=== PATIENT | male | born 1955 | race Caucasian/White ===

== ENCOUNTER 2017-11-20 09:41 | Day surgery (SDC) | payer BC ==
[2017-11-18 17:45] VITALS: BMI 22.3
[~2017-11-20 09:41] MED LIST: LACTATED RINGERS 1,000 ML IV SCH
[2017-11-20 10:55] VITALS: RESP 16; TEMP 97
[2017-11-20] MEDS ORDERED: LIDOCAINE 1% 20 ML VIAL (10MG/ML) FOR IV START INTRADERMA ONE (11:04)
[2017-11-20] MEDS ORDERED: PROPOFOL 10 MG/ML 20 ML VIAL IV ONE (11:37)
--- NOTE | 2017-11-20 12:01 | P.PCN ---
Date of Procedure: 11/20/17 Procedure(s) Performed: BRIEF HISTORY: Patient is a 62-year-old pleasant white male, scheduled for an elective colonoscopy as a part of screening for colorectal rectal neoplasia. PROCEDURE PERFORMED: Colonoscopy with snare polypectomy. PREOPERATIVE DIAGNOSIS: Screening for colon cancer. IV sedation per Anesthesia. PROCEDURE: After informed consent was obtained, the patient, was brought into the endoscopy unit. IV sedation was administered by Anesthesia under continuous monitoring. Digital rectal examination was normal. Initially the Olympus CF- 160 flexible video colonoscope was then inserted in the rectum, gradually advanced into the cecum without any difficulty. Careful examination was performed as the scope was gradually being withdrawn. Ileocecal valve and the appendiceal orifice were visualized and appeared normal. Prep was excellent. Mucosa of the cecum, ascending colon, transverse colon, descending colon, sigmoid colon, and rectum appeared normal. There was a 7 mm polyp noted in the recto sigmoid colon that was removed by snare polypectomy. Scattered left sided diverticulosis seen. Retroflexion was performed in the rectum and no lesions were seen. The patient tolerated the procedure well. IMPRESSION: 7-8 mm rectosigmoid colon polyp status post polypectomy Scattered left-sided diverticulosis. RECOMMENDATIONS: Findings of this examination were discussed with the patient as well as his family. He was advised to follow with the biopsy results. If the biopsy shows a tubular adenoma he can have a repeat colonoscopy in 5 years.
[2017-11-20 12:21] VITALS: BP 128/83; PULSE 78
== END 2017-11-20 12:50 | disposition home or self-care (01) ==
LOC: ORWHC2ENDO 09:41
PROVIDERS: ATTEND Internal Medicine Gastroenterology
DX: Z12.11 Encounter for screening for malignant neoplasm of colon (principal); K63.5 Polyp of colon; K57.30 Diverticulosis of large intestine without perforation or abscess without bleeding; Z88.0 Allergy status to penicillin; Z79.82 Long term (current) use of aspirin
CPT/HCPCS: 88305; 45385; J2704

== ENCOUNTER → 2023-06-10 | Outpatient (CLI) | payer MEDICARE ==
--- NOTE | 2023-06-10 09:26 | US ---
EXAMINATION TYPE: US Aorta Screening DATE OF EXAM: 06/10/2023 COMPARISON: NONE CLINICAL INDICATION: Male, 68 years old with history of Z82.49 FAMILY HX OF ISCHEM HEART DIS AND, F1 7.210; TECHNIQUE: Multiple sonographic images of the abdominal aorta are obtained. FINDINGS: EXAM MEASUREMENTS: Abdominal Aorta: Mild atherosclerotic plaque throughout. Normal color flow identified. Proximal: 2.4 x 2.3 cm Mid: 1.8 x 1.8 cm Distal: 1.9 x 1.7 cm Bifurcation: Right iliac artery measures 1.0 x 1.3 cm. Left iliac artery measures 1.1 x 1.1 cm. IMPRESSION: No abdominal aortic aneurysm.
--- NOTE | 2023-06-10 10:00 | CTL ---
EXAMINATION TYPE: CT Low Dose Lung DATE OF EXAM ORDERED: 06/10/2023 HISTORY: . Lung cancer screening CT DLP: 93.[address] CTDI: 2.5 mGy Automated exposure control for dose reduction was used. SCREENING VISIT: COMPARISON: None TECHNIQUE: Low dose computed tomography scan was performed through the chest at 1 mm thick sections a nd reconstructed images in multiple planes at 1 mm and [address] DIAGNOSTIC QUALITY: Satisfactory FINDINGS: Biapical scarring. Subpleural micronodules bilateral lung apices. Diffuse emphysematous changes. No focal consolidative pneumonia. Pleural effusion or pneumothorax. No interstitial edema. Groundglas s subsegmental changes involving the right lung base most likely atelectasis. Structures of the upper abdomen demonstrate small hiatal hernia. Heart size normal. Mild atherosclero tic change of aorta. No evidence of aneurysm. Assessment for adenopathy limited by noncontrast techni que. Grossly no pathologic Multilevel hypertrophic and degenerative changes of the spine. Upper pole right renal lesion measures 12 Hounsfield units suggestive of simple cyst. IMPRESSION: 1. No suspicious pulmonary nodules. Diffuse emphysematous changes are noted. CT LUNG RAD AND CT CHEST RECOMMENDATION: Lung-Rad 2 Benign Appearance or Behavior: Continue annual sc reening with LDCT in 12 months.
== END | disposition home or self-care (01) ==
LOC: RADUSWWP 08:37
PROVIDERS: ATTEND Family Medicine
DX: Z12.2 Encounter for screening for malignant neoplasm of respiratory organs (principal); F17.210 Nicotine dependence, cigarettes, uncomplicated; J43.9 Emphysema, unspecified; Z82.49 Family history of ischemic heart disease and other diseases of the circulatory system
CPT/HCPCS: 71271; 76706

== ENCOUNTER → 2024-01-20 | Outpatient (CLI) | payer MEDICARE ==
--- NOTE | 2024-01-27 23:07 | MR ---
EXAMINATION TYPE: MR knee LT wo con DATE OF EXAM: 01/20/2024 COMPARISON: NONE HISTORY: Pain and swelling of left knee x1 week, TECHNIQUE: Multiplanar, multisequence images of the knee is performed without IV contrast. FINDINGS: MEDIAL MENISCUS: Truncated appearance to the posterior horn with abnormal signal extending to articul ar surface. LATERAL MENISCUS: Horizontal increased signal does not definitively extend to articular surface. CRUCIATE LIGAMENTS: The anterior and posterior cruciate ligaments are intact and unremarkable. COLLATERAL LIGAMENTS: The medial collateral ligament and lateral collateral ligament complex are inta ct and unremarkable. EXTENSOR MECHANISM: Visualized quadriceps and patellar tendons are intact. EFFUSION: Large size suprapatellar joint effusion. POPLITEAL CYST: No popliteal/suresh cyst. TRICOMPARTMENT SPACES: Mild to moderate tricompartment joint space loss and mild tricompartment spurr ing. CARTILAGE: Some cartilaginous loss medial tibiofemoral compartment. BONE MARROW SIGNAL: No focal abnormal marrow signal is appreciated. OTHER: Moderate diffuse abnormal subcutaneous edema. IMPRESSION: 1. Large-sized suprapatellar joint effusion. 2. Full-thickness tear posterior horn medial meniscus. 3. Intrasubstance tear involving the entire lateral meniscus. 4. Mild to moderate tricompartment degenerative changes are present as detailed above. 5. Moderate diffuse subcutaneous edema.
== END | disposition home or self-care (01) ==
LOC: RADMRIMAIN 21:12
PROVIDERS: ATTEND Family Medicine
DX: S83.242A Other tear of medial meniscus, current injury, left knee, initial encounter (principal); S83.282A Other tear of lateral meniscus, current injury, left knee, initial encounter; M17.12 Unilateral primary osteoarthritis, left knee

== ENCOUNTER → 2024-06-28 | Outpatient (CLI) | payer MEDICARE ==
--- NOTE | 2024-06-28 11:27 | CTL ---
EXAMINATION TYPE: CT Low Dose Lung DATE OF EXAM ORDERED: 06/28/2024 COMPARISON: CT Low Dose Lung 06/10/2023 CLINICAL INDICATION: Male, 69 years old with history of Z12.2 LUNG CA SCR F17.210 CURRENT SMOKER; [facility] , Personal hx nicotine use, 1 ppd x 52 years, current smoker, Lung cancer screening, History of Smoki ng/tobacco use. TECHNIQUE: Low dose computed tomography scan was performed through the chest at 1 mm thick sections a nd reconstructed images in multiple planes at 1 mm and [address] DLP: 114.[address] CTDI: 2.8 mGy Automated exposure control for dose reduction was used. CT DIAGNOSTIC QUALITY: Satisfactory FINDINGS: Nodules: No clinically significant pulmonary nodules. LUNGS: COPD: Severity: Moderate Fibrosis: Severity: None Lymph nodes: None Other findings: Biapical scarring. RIGHT PLEURAL SPACE: Effusion: None Calcification: None Thickening: None Pneumothorax: None LEFT PLEURAL SPACE: Effusion: None Calcification: None Thickening: None Pneumothorax: None HEART: Heart Size: Normal Coronary Calcification: None Pericardial Effusion: None OTHER FINDINGS: Upper abdomen: 2.3 cm right upper pole low density lesion most consistent with a cyst. Bony thorax: None Supraclavicular region: None Other: Mild atherosclerotic calcification of the aorta and its branches. IMPRESSION: 1. No clinically significant pulmonary nodules. 2. Moderate COPD changes. CT LUNG RAD AND CT CHEST RECOMMENDATION: Lung-Rad 1 Negative: Continue annual screening with LDCT in 12 months. S Modifier (other clinically significant findings): None [facility], , 06/28/2024 11:24 AM
== END | disposition home or self-care (01) ==
LOC: RADCTMAIN 10:30
PROVIDERS: ATTEND Family Medicine
DX: Z12.2 Encounter for screening for malignant neoplasm of respiratory organs (principal); J44.9 Chronic obstructive pulmonary disease, unspecified; F17.210 Nicotine dependence, cigarettes, uncomplicated; I70.0 Atherosclerosis of aorta
CPT/HCPCS: 71271